=== PATIENT | male | born 1990 ===

== ENCOUNTER → 2025-03-01 13:06 | Outpatient (BNVA) | payer OTHER, SELFPAY | PROVIDERS: PCP Nurse Practitioner Family; Visit Provider Nurse Practitioner Family | DX: Z00.00 Encounter for general adult medical examination without abnormal findings (principal); I10 Essential (primary) hypertension; G47.30 Sleep apnea, unspecified; E66.9 Obesity, unspecified; H52.209 Unspecified astigmatism, unspecified eye; Z68.37 Body mass index [BMI] 37.0-37.9, adult; Z79.899 Other long term (current) drug therapy | CPT/HCPCS: 96127; 99385 ==

== ENCOUNTER 2025-04-20 11:58 | Outpatient (REF) | payer OTHER, SELFPAY ==
[2025-04-20 12:18] LABS: MANUAL DIFF FLAG NO
[2025-04-20 12:40] LABS: Hematocrit 44.1 % (42.0-52.0); Hemoglobin 15.1 g/dl (14.0-18.0); Imm Gran Abs Auto 0.04 X10*3/uL (0.00-0.03); Imm Gran Pct Auto 0.5 % (0.0-0.4); Lymphocytes Absolute Auto 1.1 X10*3/uL (1.2-4.9); Mean Corpuscular HGB Conc 34.2 g/dl (31.0-36.0); Mean Corpuscular Hemoglobin 27.2 pg (27.0-33.0); Mean Corpuscular Volume 79.5 fL (80.0-98.0); NRBC Abs Auto 0.000 X10*3/uL (0.0-0.012); NRBC Pct Auto 0.0 /100WBC (0.0-0.2); Platelet Count 229 X10*3/uL (160-400); Red Blood Count 5.55 X10*6/uL (4.60-5.80); White Blood Count 8.1 X10*3/uL (4.8-10.8)
[2025-04-20 12:44] LABS: Appearance Urine Clear; Glucose Urine UA Negative (Negative); PH 8.0 (5.0-9.0); Specific Gravity - Urine 1.015 (1.005-1.025)
[2025-04-20 13:09] LABS: Alanine Aminotransferase 29 U/L (0-40); Albumin Level 4.7 g/dL (3.5-5.0); Alkaline Phosphatase 68 U/L (39-117); Anion Gap 10 (12-20); Aspartate Amino Transferase 20 U/L (5-37); Blood Urea Nitrogen 12 mg/dL (9-16); Calcium 9.3 mg/dL (8.4-10.2); Carbon Dioxide 29 mmol/L (22-29); Chloride 107 mmol/L (96-108); Cholesterol 155 mg/dL (<200); Estimated Glomerular Filt Rate > 60; HDL Cholesterol 49 mg/dL (>40); Potassium 4.3 mmol/L (3.3-5.1); Sodium 142 mmol/L (135-145); Total Protein 7.7 g/dL (6.5-8.0); Triglycerides 66 mg/dL (<150)
[2025-04-20 13:11] LABS: Microalbum/Creatinine Ratio Ur 6.9 ug/mg cr (<30)
--- OUTSIDE RECORDS SUMMARY | 2025-04-20 13:11 | XMS_ITS ---
Author Name [facility] Organization Unknown History of Medication Use Medication Directions Dispensed Refills Start Date End Date Status brompheniramine-pseu doeph-DM (BROMFED DM) 2-30-10 mg/5 mL oral syrup Take 10 mLs by mouth 4 (four) times daily as needed for cough or congestion for up to 7 days. 4 07/06/20 24 active Cyclobenzaprine HCl - 10 MG Oral Tablet Cyclobenzaprine HCl - 10 MG Oral TabletTAKE 1 TABLET AT BEDTIME. Quantity: 1 Refills: 0Laflamme Ayesha WISE Start : [id number] Tablet Bottle 3 completed Sildenafil Citrate 100 MG Oral Tablet Sildenafil Citrate 100 MG Oral TabletTAKE ONE-HALF TABLET BY MOUTH ONE HOUR BEFORE SEX NEEDED Quantity: 6 Refills: 2Laflamme Ayesha WISE Start : [id number] 1 completed Problems Problem Status Onset Date Problem Type Date of Resolution Source Streptococcal pharyngitis active 2024-03-13 [address] [facility] Pneumonia of left lower lobe due to infectious organism active EncounterDiagnosisAct [facility] Acute cough active EncounterDiagnosisAct [facility] Immunizations Vaccine Date Source Lot Number Status Moderna COVID-19 Vaccine 100 MCG/0.5ML Intramuscular Suspension 12/13/2020 [facility] complet ed Pneumococcal polysaccharide vaccine, 23 valent 06/30/2020 [facility] completed Encounters Encounter Type Encounter Reason Primary Diagnosis Location Date Ambulatory Pneumonia, organism unspecified(486) Pneumonia, organism unspecified(486) [facility] 06/28/2024 Ambulatory [facility] 03/13/2024 Care Team Organization Name Specialty Phone Email Start Date End Da te [facility] 06/28/2024 [facility] Primary Care 03/13/2024 [facility] 03/13/2024 [facility] 04/18/2023 06/04/2024 [facility] 10/06/2022 10/06/2022
--- OUTSIDE RECORDS SUMMARY | 2025-04-20 13:11 | XMS_ITS | Clinical Summary ---
Author Organization [address] [address] Care Team Providers Care Spot Remover Name Role Phone Unavailable Primary Care Provider Unavailabl e Medications No known medications Social History Tobacco Use Types Packs/Day Years Used Date Smoking Tobacco: Never Smokeless Tobacco: Never Tobacco Cessation:Counseling Given: No Alcohol Use Standard Drinks/Week Comments Never 0 (1 standard drink = 0.6 oz pur e alcohol) Sex and Gender Information Value Date Recorded Sex Assigned at Not on file Legal Sex Male 9:59 AM EDT Gender Identity Not on file Sexual Orientation Not on file Last Filed Vital Signs Vital Sign Reading Time Taken Comments Blood Pressure 171/108 06/28/2024 11:33 AM EDT Pulse 88 06/28/2024 11:33 AM EDT Temperature 36.9 C (98.5 F) 06/28/2024 11:33 AM EDT Respiratory Rate - - Oxygen Saturation 100% 06/28/2024 11:33 AM EDT Inhaled Oxygen Concentration - - Weight - - Height - - Body Mass Index - - Plan of Treatment Health Maintenance Due Date Last Done Comments HIV screening 2005 Hepatitis C screening 2010 Tetanus adult (Td q 10,TDAP once) 2012 Covid-19 vaccine series ( - season) 2024 12/13/2020 Influenza vaccine 05/31/2025 RSV Immunization (1 - 1-dose 75+ series) 2067 Pneumococcal Vaccine (2 - 49 years) Aged Out 06/30/2020 No longer eligible b ased on patient's age to complete this topic Meningococcal Vaccine Aged Out No maria giovanny eligible based on patient's age to complete this topic Insurance [employer] [facility] [employer] Member Subscriber Plan / Payer ( fective 2023-Present) Name:Mitch Mitchell Relation to Subscriber:Self Name:Mitch Mitchell Payer ID:[id number] (NAIC) Type:Not on file Address: [place] [phone]
== END 2025-04-20 11:59 | disposition home or self-care (01) ==
LOC: HO.LAB 11:58
PROVIDERS: PCP Nurse Practitioner Family; Visit Provider Nurse Practitioner Family
DX: Z00.00 Encounter for general adult medical examination without abnormal findings (principal)
CPT/HCPCS: 36415; 80053; 80061; 81003; 82043; 82306; 82570; 84443; 85025

== ENCOUNTER 2025-05-04 11:46 | Outpatient (AMB) | payer OTHER, SELFPAY ==
--- NOTE | 2025-05-04 11:49 | MHC.PC.OV ---
Vital Signs 05/04/25 11:54 Height 6 ft Weight 271 lb BMI 36.8 BP 144/100 H Blood Pressure Location Lt brachial Position Sitting Respiration 16 Pulse 73 Pulse Source Pulse Oximeter Temp 97.2 F Temp Source Temporal Artery Scan Pulse Oximetry (%) 95 Oxygen Delivery Method Room Air Intake Visit Reasons: 2-3 wks HTN, labs review Intake Note: Mitch presents in the office today for a follow up to hypertension and his most recent lab results. Patient is not taking the amlodipine. Allergies No Known Allergies Allergy (Verified 05/04/25 12:09) Tobacco use date assessed: 05/04/25 Dental Screening Dental Screen Date: 05/04/25 Did you have a dental visit in the last 12 months?: No Did you have a dental problem in the last 6 months where you did not have access to dental care?: No Was dental information given to patient?: Patient has dentist HPI HPI Comments History of Present Illness Details 34-year-old male presents for hypertension and recent labs review follow-up. Amlodipine 2.5 mg daily was prescribed at his last visit a month ago. However, he took the medication a few times and stopped. He reports significant caffeine intake but recently decreased his caffeine intake to 400-500mg daily, from 600-700mg. He recently returned from a week vacation where he made on healthy dietary choices and drank significant amount of alcohol. He denies acute symptoms. [facility] Medical History (Updated 05/04/25 @ 12:11 by Michel Gonzalez CNP) Sleep apnea Chlamydia High blood pressure Surgical History (Updated 03/01/25 @ 13:28 by Raeann Michel MA) Hx of appendectomy Social History (Updated 05/04/25 @ 11:54 by Paula Thornton MA) Housing: Condominium Alcohol intake: current Patient Tobacco Use Status: Never used Tobacco e-Cigarette/Vaping Use: Never Used Second Hand Smoke Exposure: No service: No Current occupational status: employed Current occupation: [employer] Current occupational exposures/hazards: No Cognitive needs: No Hearing needs: No Vision needs: Yes Questionnaire Thrive Questionnaire Date Thrive assessed: 02/22/25 I am a: Patient What is your living situation today?: I have a steady place to live Within the past 12 months, did the food you bought not last and you didn't have the money to get more?: I choose not to answer this question Within the past 12 months, did you worry whether your food would run out before you got money to buy more?: I choose not to answer this question Do you have trouble paying for medicines?: No Do you have trouble getting transportation to medical appointments?: No Do you have trouble paying your heating and electricity bill?: No Do you have trouble taking care of your child, family member or friend?: No Do you have trouble with day-to-day activities such as bathing, preparing meals, shopping, managing finances, etc.?: No Are you currently unemployed and looking for a job?: No Are you interested in more education?: Yes Please select the resources that you would like help with: None Currently or been in a relationship where the following occur: No concerns reported THRIVE Score: 0 NICOLAS-7 AMB Questionnaire NICOLAS-7 Date NICOLAS - 7 assessed: 03/01/25 Source: Developed by Drs. Carlos Servin, Agustina Blackmon, Pan Hollis and colleagues, with an educational yancy from [employer]. Review of Systems Const Details: Const Denies chills, Denies fatigue, Denies fever(s), Denies headache(s) and Denies weakness ENT Denies dizziness and Denies headache(s) Card Denies chest pain, Denies lightheadedness, Denies dyspnea and Denies other (Palpitations) Resp Denies cough, Denies dyspnea, Denies wheezing and Denies other ( shortness of breath) GI Denies abdominal pain, Denies melena, Denies hematochezia, Denies change in bowel habits, Denies dyspepsia and Denies nausea Denies hematuria and Denies dysuria Musc Denies abnormal gait, Denies myalgias, Denies arthralgias, Denies numbness and Denies tingling Skin/Breast Denies rash, Denies unusual bruising and Denies wounds Neuro Denies abnormal gait, Denies dizziness, Denies headache(s), Denies memory loss, Denies numbness, Denies Sensory deficit (Neuro), Denies tingling and Denies weakness Psych Denies anxiety, Denies depression, Denies memory loss Endo Denies cold intolerance, Denies fatigue, Denies heat intolerance, Denies polydipsia and Denies polyuria Aller/Immun Denies wheezing Physical exam (Primary Care) Vital Signs: Last Vital Signs Temp 97.2 F 05/04/25 11:54 Pulse 73 05/04/25 11:54 Resp 16 05/04/25 11:54 BP 140/92 H 05/04/25 11:54 Pulse Ox 95 05/04/25 11:54 Oxygen Delivery Method Room Air 05/04/25 11:54 BMI result Body Mass Index 36.8 Tobacco/Smoking Status: Tobacco use Status Tobacco use date assessed 05/04/25 05/04/25 11:54 Patient Tobacco Use Status Never used Tobacco 05/04/25 11:54 e-Cigarette/Vaping Use Never Used 05/04/25 11:54 Thrive Assessment: Date of Thrive Assessment Date Thrive assessed 02/22/25 05/04/25 11:51 Currently or been in a relationship where the following occur: No concerns reported Const Other: General: no acute distress and well developed Nutritional Appearance: well nourished Orientation/consciousness: patient oriented x3 HENMT Head: Yes normocephalic and Yes atraumatic Eyes General: appearance normal, both eyes and all related structures Pupils: Equal, round and reactive pupils present EOM: EOMs intact bilaterally Resp Effort & Inspection: normal respiratory effort Auscultation: clear to auscultation bilaterally Cardio Rate: regular rate Rhythm: regular rhythm Heart sounds: S1 normal heart sound present, S2 normal heart sound present, no gallops, no murmurs and no rubs GI Palpation (GI): No Abdominal aortic bruit present, Soft to palpation, nontender, No hepatosplenomegaly present and No Rebound tenderness present Auscultation: normal bowel sounds General: Yes no CVA tenderness Back/Spine/Pelvis Back: no CVA tenderness Cervical Spine: cervical ROM normal and No Cervical spine tenderness Thoracic/Lumbar Spine: thoraco-lumbar ROM normal, No pain with thoraco-lumbar ROM, No thoracic spinal tenderness and No lumbar spinal tenderness Extrem General: Yes normal to inspection, No edema and No calf tenderness Skin General: warm and dry. Normal skin color. Normal skin turgor Neuro General: patient oriented x3, gait normal and no focal neuro deficit Cranial nerves: Yes Equal, round and reactive pupils present Cognition (Neuro): normal cognition Gait exam (Neuro): Normal gait present Sensory Exam: No Sensory deficit (Neuro) Psych Appearance: grossly normal Affect: normal affect Attitude: cooperative Thought process: Normal thought process present Coding Level of Care Code Est Pt Level 3 (73784) Diagnoses High blood pressure I10 Elevated fasting glucose R73.01 Assessment & Plan Assessment & Plan (1) High blood pressure: Code(s): I10 - Essential (primary) hypertension Category: Medical Plan: Resting blood pressure is 144/100, above goal of less than 140/90. He has only had a few doses of amlodipine since prescribed. Poor diet and increase alcohol and caffeine intake may contribute to elevated blood pressure. Encouraged to resume taking amlodipine as prescribed. Healthy diet and routine exercise encouraged. Limit alcohol intake to no more than 2 drinks daily or 5 weekly. Follow-up in 1 month or sooner with symptoms or concerns. Verbalized understanding and agreed with the plan. (2) Elevated fasting glucose: Code(s): R73.01 - Impaired fasting glucose Category: Medical Plan: Recent fasting glucose is elevated, 109. Healthy diet and routine exercise encouraged. Will recheck fasting glucose and make changes as needed. Verbalized understanding and agreed with the plan. Orders: Orders Glucose Fasting 1 Month R73.01 - Impaired fasting glucose
[2025-05-04 11:54] VITALS: BP 144/100; PULSE 73; RESP 16; TEMP 36.2; O2SAT 95; BMI 36.8
--- OUTSIDE RECORDS SUMMARY | 2025-05-04 12:37 | XMS_ITS | Clinical Summary ---
Author Organization [facility] Address [address] [place] [address] Care Team Providers Care Corporate Meeting Planner Name Role Phone Unknown Pcp, Non Php Primary Care Provider Unava ilable Medications Cyclobenzaprin e HCl (FLEXERIL) 10 MG tablet TAKE 1 TABLET AT BEDTIME. 1 0 3 Active Sildenafil Citrate (VIAGRA) 100 MG tablet TAKE ONE-HALF TABLET BY MOUTH APPROXIMATELY ONE HOUR BEFORE SEXUAL ACTIVITY. 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 of thoracic region 05/07/2023 Back pain, thoracic 05/02/2023 Palpitations 04/18/2023 Insufficient sleep syndrome 04/07/2021 Obstructive sleep apnea, adult 01/18/2021 Overview (11/03/2023): Transitioned From: Snoring Erectile dysfunction 01/10/2021 Upper airway resistance syndrome 12/22/2020 Decreased sex drive 12/14/2020 Elevated liver enzymes 12/14/2020 Obesity (BMI 35.0-39.9 without comorbidity) 11/2020 Encounters Date Type Department Care Team Description 03/19/2025 Refill [facility] [address] [place] [address] Noa Gu APRN BC Refill Request 03/16/2025 Refill [facility] [address] [place], [place] [id number] Noa Gu APRN BC Refill Request from Last 3 Months Immunizations Immunization Administration Dates Next Due COVID-19, mRNA (Moderna Pre Fall 2022) Monovalent, 100 mcg/0.5 ml or 50 mcg/0.25 ml dose 12/13/2020 PPV23 (Pneumovax) 06/30/2020 Family History Medical History Relation Name Comments Diabetes Father type 2 diabetes mellitus : Father Relation Name Status Comments Father Mother Social History Tobacco Use Types Packs/Day Years Used Date Smoking Tobacco: Never Assessed Comments:Smoking Status:No c urrent tobacco use Sex and Gender Information Value Date Recorded Sex Assigned at Male 07/03/2023 7:46 PM EDT Legal Sex Male 7:46 PM EDT Gender Identity Male 07/03/2023 7:46 PM EDT Sexual Orientation Not on file Last Filed Vital Signs Vital Sign Reading Time Taken Comments Blood Pressure 124/78 05/02/2023 10:50 AM EDT Pulse 77 05/02/2023 10:50 AM EDT Temperature 36.3 C (97.3 F) 05/02/2023 10:50 AM EDT Respiratory Rate 16 05/02/2023 10:50 AM EDT Oxygen Saturation 98% 01/02/2023 1:01 PM EDT Inhaled Oxygen Concentration - - Weight 124 kg (273 lb) 05/02/2023 10:50 AM EDT Height 185.4 cm (6' 1 ) 05/02/2023 10:50 AM EDT Body Mass Index 36.02 05/02/2023 10:50 AM EDT Plan of Treatment Health Maintenance Due Date Last Done Comments DTaP/Tdap/Td (1 - Tdap) 2010 Hep B (1 of 3 - 19+ 3-dose series) 2011 COVID-19 Vaccine (2 - 2023-2 5 season) 2024 12/13/2020 Influenza (#1) 2025 Zoster (Shingrix) (1 of 2) 2042 Pneumococcal Aged Out 06/30/2020 No longer eligi ble based on patient's age to complete this topic Physical Discontinued 01/02/2023, 11/30/2020 EKG Discontinued 04/14/2023 Hepatitis C Screening Completed 04/19/2023 , 11/30/2020 LDL Cholesterol Discontinued 04/19/2023, 11/30/2020 HPV Vaccine (No Doses Required) Completed Hep A Aged Out No longer eligi ble based on patient's age to complete this topic Hib Aged Out No longer eligi ble based on patient's age to complete this topic Meningococcal ACWY Aged Out No longer eligible based on patient's age to complete this topic Procedures Procedure Name Priority Date/Time Associated Diagnosis Comments HEPATITIS C ANTIBODY W/ REFLEX TO RNA, QN, RT PCR Routine 04/19/2023 10:52 AM EDT LIPID PANEL, PLASMA Routine 04/19/2023 1 0:52 AM EDT EKG 04/14/2023 12:00 AM EDT from Last 3 Months or Most Recently Relevant to Health Maintenance Results * HEPATITIS C ANTIBODY W/ REFLEX TO RNA, QN, RT PCR (04/19/2023 10:52 AM EDT) Hepatitis C virus Ab NON-REACT HEATHER NON-REACT HEATHER PHCT CONVERSIONS Comment:Antibodies to HCV we re not detected. NOTE: This does not entirely exclude the possibility of exposure to HCV since antibody production may lag infection. If there is a high suspicion of HCV infection HCV RNA testing may be of diagnostic value. 04/19/2023 10:5 2 AM EDT Narrative PHCT CONVERSIONS - 04/19/2023 9:53 PM EDT Testing Performed at: [facility], [address] [place] [address], [place] [address], , [employer]afood: Pooja New MD CL#[id number] Ayesha Corona APRN LABORATORY Final Re sult PHCT CONVERSIONS * LIPID PANEL, PLASMA (04/19/2023 10:52 AM EDT) Cholesterol 134 0 - 199 mg/dL PHCT CONVERSIONS Triglyceride 104 0 - 150 mg/dL PH[facility] CONVERSIONS VLDL Cholesterol 21 5 - 40 mg/dL [facility] CONVERSIONS HDL Cholesterol 44 40 - 80 mg/dL [facility] CONVERSIONS LDL Cholesterol 70 0 - 100 mg/dL PHCT CONVERSIONS Cholesterol Non-HDL 90 0 - 130 mg/dl PHCT CONVERSIONS CHOL/HDL Ratio 3.1 PHCT CONVERSIONS 04/19/2023 10:5 2 AM EDT Narrative PHCT CONVERSIONS - 04/19/2023 10:01 PM EDT FASTING: YES Testing Performed at: [facility], [address] [place] [address], [place] [address], , [employer]: Pooja New MD CL#[id number] us Ayesha Corona THREADING MACHINE SETTER BC LABORATORY Final Re sult PHCT CONVERSIONS * EKG (04/14/2023 12:00 AM EDT) Narrative 04/14/2023 12:00 AM EDT Ordered by an unspecified provider. us Unknown Provider CARDIOVASCULAR-NO INBASKET RTG Final Result from Last 3 Months or Most Recently Relevant to Health Maintenance Insurance PPO Care Teams Corporate Meeting Planner Relationship Specialty Start Date End Date Unknown Pcp, Non Php PCP - General 03/23/25
--- OUTSIDE RECORDS SUMMARY | 2025-05-04 12:37 | XMS_ITS | Clinical Summary ---
Author Organization [facility] Address [address] [place] [address] Care Team Providers Care Accounts Payable Technician Name Role Phone Unavailable Primary Care Provider Unavailabl e Social History Tobacco Use Types Packs/Day Years Used Date Smoking Tobacco: Never Assessed Sex and Gender Information Value Date Recorded Sex Assigned at Not on file Legal Sex Male 8:22 AM EDT Gender Identity Not on file Sexual Orientation Not on file Plan of Treatment Health Maintenance Due Date Last Done Comments Hepatitis C Virus Screening 1992 HIV Screening 2005 DTaP/Tdap/Td Vaccines (1 - Tdap) 2011 Hepatitis B Vaccines (1 of 3 - 19+ 3-dose series) 2011 COVID-19 Vaccine ( - 2023-2 5 season) 2024 HPV Vaccines Aged Out No longer eligi ble based on patient's age to complete this topic Pneumococcal Vaccine: Pediat stephon (0-5 Years) and At-Risk Patients (6 to 49 Years) Aged Out No longer eligible b ased on patient's age to complete this topic
--- OUTSIDE RECORDS SUMMARY | 2025-05-04 12:38 | XMS_ITS | Clinical Summary ---
Author Organization [address] [address] Care Team Providers Care Refrigerator Glazier Name Role Phone Unavailable Primary Care Provider [...] patient's age to complete this topic [facility] [employer] [employer] [facility] [employer] [facility] Member Subscriber Plan / Payer ( fective 2023-Present) Name:Mitch Mitchell Relation to Subscriber:Self Name:Mitch Mitchell Payer ID:[id number] (NAIC) Type:Not on file Address: [place] [phone]
== END 2025-05-04 12:26 | disposition home or self-care (01) ==
LOC: HO.HMCFM 11:47
PROVIDERS: PCP Nurse Practitioner Family; Visit Provider Nurse Practitioner Family
DX: I10 Essential (primary) hypertension (principal); R73.01 Impaired fasting glucose

== ENCOUNTER → 2025-05-04 11:46 | Outpatient (BNVA) | payer OTHER, SELFPAY | PROVIDERS: PCP Nurse Practitioner Family; Visit Provider Nurse Practitioner Family | DX: I10 Essential (primary) hypertension (principal); R73.01 Impaired fasting glucose; Z79.899 Other long term (current) drug therapy | CPT/HCPCS: 99212 ==

== ENCOUNTER 2025-06-29 13:31 | Outpatient (AMB) | payer OTHER, SELFPAY ==
--- NOTE | 2025-06-29 13:35 | MHC.PC.OV ---
Vital Signs 06/29/25 13:42 Height 6 ft Weight 280 lb BMI 38.0 BP 131/67 Blood Pressure Location Rt brachial Position Sitting Respiration 20 Pulse 70 Pulse Source Pulse Oximeter Temp 98.6 F Temp Source Oral Pulse Oximetry (%) 98 Oxygen Delivery Method Room Air Intake Visit Reasons: FMLA PW Intake Note: patient here for FMLA forms Hogshead Hooper Required: No Allergies No Known Allergies Allergy (Verified 06/29/25 14:00) Medication List - Last Reconciled 06/29/25 by Michel Gonzalez CNP amlodipine 2.5 mg PO DAILY Tobacco use date assessed: 06/29/25 Dental Screening Dental Screen Date: 06/29/25 Did you have a dental visit in the last 12 months?: Yes Did you have a dental problem in the last 6 months where you did not have access to dental care?: No Was dental information given to patient?: Patient has dentist HPI HPI Comments History of Present Illness Details 34-year-old male presents for completion of FMLA paperwork. He was evaluated at [facility] urgent care in 06/09/2025 for low back pain related to lifting heavy boxes out of his car. He was cleared to return to work on 06/12/2025. He notes that he missed work between 06/07/2025 and 06/12/2025 due to that illness. He denies acute symptoms at this time. [facility] visit note on 06/09/2025 reviewed by this provider. He admits to taking amlodipine as prescribed without adverse reactions. He notes that he has been making healthy dietary choices, including less salt and caffeine. He did not perform fasting glucose blood work as planned. 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 Current occupational exposures/hazards: No Cognitive needs: No Hearing needs: No Vision needs: Yes Questionnaire Thrive Questionnaire Date Thrive assessed: 02/22/25 I am a: Patient What is your living situation today?: I have a steady place to live Within the past 12 months, did the food you bought not last and you didn't have the money to get more?: I choose not to answer this question Within the past 12 months, did you worry whether your food would run out before you got money to buy more?: I choose not to answer this question Do you have trouble paying for medicines?: No Do you have trouble getting transportation to medical appointments?: No Do you have trouble paying your heating and electricity bill?: No Do you have trouble taking care of your child, family member or friend?: No Do you have trouble with day-to-day activities such as bathing, preparing meals, shopping, managing finances, etc.?: No Are you currently unemployed and looking for a job?: No Are you interested in more education?: Yes Please select the resources that you would like help with: None Currently or been in a relationship where the following occur: No concerns reported THRIVE Score: 0 NICOLAS-7 AMB Questionnaire NICOLAS-7 Date NICOLAS - 7 assessed: 03/01/25 Source: Developed by Drs. Carlos Servin, Agustina Blackmon, Pan Hollis and colleagues, with an educational yancy from [employer]. Review of Systems Const Details: Const Denies chills, Denies fatigue, Denies fever(s), Denies headache(s) and Denies weakness ENT Denies dizziness and Denies headache(s) Card Denies chest pain, Denies lightheadedness, Denies dyspnea and Denies other (Palpitations) Resp Denies cough, Denies dyspnea, Denies wheezing and Denies other ( shortness of breath) GI Denies abdominal pain, Denies melena, Denies hematochezia, Denies change in bowel habits, Denies dyspepsia and Denies nausea Denies hematuria and Denies dysuria Musc Denies abnormal gait, Denies myalgias, Denies arthralgias, Denies numbness and Denies tingling Skin/Breast Denies rash, Denies unusual bruising and Denies wounds Neuro Denies abnormal gait, Denies dizziness, Denies headache(s), Denies memory loss, Denies numbness, Denies Sensory deficit (Neuro), Denies tingling and Denies weakness Psych Denies anxiety, Denies depression, Denies memory loss Endo Denies cold intolerance, Denies fatigue, Denies heat intolerance, Denies polydipsia and Denies polyuria Aller/Immun Denies wheezing Physical exam (Primary Care) Vital Signs: Last Vital Signs Temp 98.6 F 06/29/25 13:42 Pulse 70 06/29/25 13:42 Resp 20 06/29/25 13:42 BP 131/67 06/29/25 13:42 Pulse Ox 98 06/29/25 13:42 Oxygen Delivery Method Room Air 06/29/25 13:42 BMI result Body Mass Index 38.0 Tobacco/Smoking Status: Tobacco use Status Tobacco use date assessed 06/29/25 06/29/25 13:46 Patient Tobacco Use Status Never used Tobacco 06/29/25 13:38 e-Cigarette/Vaping Use Never Used 06/29/25 13:38 Thrive Assessment: Date of Thrive Assessment Date Thrive assessed 02/22/25 06/29/25 13:38 Currently or been in a relationship where the following occur: No concerns reported Const Other: General: no acute distress and well developed Nutritional Appearance: well nourished Orientation/consciousness: patient oriented x3 HENMT Head: Yes normocephalic and Yes atraumatic Eyes General: appearance normal, both eyes and all related structures Pupils: Equal, round and reactive pupils present EOM: EOMs intact bilaterally Resp Effort & Inspection: normal respiratory effort Auscultation: clear to auscultation bilaterally Cardio Rate: regular rate Rhythm: regular rhythm Heart sounds: S1 normal heart sound present, S2 normal heart sound present, no gallops, no murmurs and no rubs GI Palpation (GI): No Abdominal aortic bruit present, Soft to palpation, nontender, No hepatosplenomegaly present and No Rebound tenderness present Auscultation: normal bowel sounds General: Yes no CVA tenderness Back/Spine/Pelvis Back: no CVA tenderness Cervical Spine: cervical ROM normal and No Cervical spine tenderness Thoracic/Lumbar Spine: thoraco-lumbar ROM normal, No pain with thoraco-lumbar ROM, No thoracic spinal tenderness and No lumbar spinal tenderness Extrem General: Yes normal to inspection, No edema and No calf tenderness Skin General: warm and dry. Normal skin color. Normal skin turgor Neuro General: patient oriented x3, gait normal and no focal neuro deficit Cranial nerves: Yes Equal, round and reactive pupils present Cognition (Neuro): normal cognition Gait exam (Neuro): Normal gait present Sensory Exam: No Sensory deficit (Neuro) Psych Appearance: grossly normal Affect: normal affect Attitude: cooperative Thought process: Normal thought process present Coding Level of Care Code Est Pt Level 3 (21144) Diagnoses High blood pressure I10 Assessment & Plan Assessment & Plan (1) High blood pressure: Code(s): I10 - Essential (primary) hypertension Category: Medical Plan: Blood pressure is 131/67, within goal of less than 130/80. Continue current treatment regimen. Low-sodium diet encouraged. Follow-up in 3 months or sooner with symptoms or concerns. Verbalized understanding and agreed with the plan. DOMINIC paperwork completed for his employer for recent low back pain. Medications: New amlodipine 2.5 mg PO DAILY 90 tabs 1RF 90 days
[2025-06-29 13:42] VITALS: BP 131/67; PULSE 70; RESP 20; TEMP 37; O2SAT 98; BMI 38.0
--- OUTSIDE RECORDS SUMMARY | 2025-06-29 14:48 | XMS_ITS | Encounter Summary ---
Author Organization [facility] Address [address] [place] [address] Care Team Providers Care Keyboard Teacher Name Role Phone Noa Gu APRN Unavailable [phone] Noa Gu [facility] Primary Care Provider Unknown Pcp, Non Php Primary Care Provider Unava ilable Reason for Visit * Reason Onset Date Comments Refill Request 03/16/2025 Encounter Details Date Type Department Care Team (Late st Contact Info) Description 03/16/2025 Refill [facility] [address] [place] [address] Noa Gu, CHARTER AND TOUR BUS DRIVER [address] [address] Refill Request Social History Tobacco Use Types Packs/Day Years Used Date Smoking Tobacco: Never Assessed Comments:Smoking Status:No c urrent tobacco use Sex and Gender Information Value Date Recorded Sex Assigned at Male 07/03/2023 7:46 PM EDT Legal Sex Male 7:46 PM EDT Gender Identity Male 07/03/2023 7:46 PM EDT Sexual Orientation Not on file documented as of this encounter Miscellaneous Notes * Telephone Encounter - Leonila Johnson - 03/16/2025 1:11 PM EDT Fax from pharmacy for: refill [facility] [phone] [facility] [address] [facility] [id number] Has the patient contacted the pharmacy for this prescription? yes documented in this encounter Plan of Treatment Not on file documented as of this encounter Visit Diagnoses Not on filedocumented in this encounter Care Teams Keyboard Teacher Relationship Specialty Start Date End Date Noa Gu APRN [address] [place] [address] PCP - Backup PCP Family Medicine 09/25/24 03/22/25 Noa Gu APRN [address] [place] [address] PCP - General Family Medicine 09/25/24 03/22/25 Unknown Pcp, Non Php PCP - General 03/23/25 documented as of this encounter
--- OUTSIDE RECORDS SUMMARY | 2025-06-29 14:48 | XMS_ITS | Clinical Summary ---
Author Organization [address] [address] Care Team Providers Care Shoes Salesperson Name Role Phone Unavailable Primary Care Provider [...] Tetanus adult (Td q 10,TDAP once) 2012 Influenza vaccine 04/30/2025 Covid-19 vaccine series ( - 2024- season) 2025 12/13/2020 RSV Immunization (1 - 1-dose 75+ series) 2067 Pneumococcal Vaccine (2 - 49 years) Aged Out 06/30/2020 No longer eligible b ased on patient's age to complete this topic Meningococcal B Vaccine Aged Out No l onger eligible based on patient's age to complete this topic Meningococcal Vaccine Aged Out No maria giovanny eligible based on patient's age to complete this topic Insurance [employer] [facility] [employer] [facility] [employer] [facility]
--- OUTSIDE RECORDS SUMMARY | 2025-06-29 14:48 | XMS_ITS | Encounter Summary ---
Author Organization [facility] Address [address] [place] [address] Care Team Providers Care Cadmium Plater Name Role Phone Noa Gu APRN Unavailable [phone] Noa Gu [facility] Primary Care Provider Unknown Pcp, Non Php Primary Care Provider Unava ilable Reason for Visit * Reason Onset Date Comments Refill Request 03/19/2025 Encounter Details Date Type Department Care Team (Late st Contact Info) Description 03/19/2025 Refill [facility] [address] [place] [address] Noa Gu, PRIVATE INVESTIGATOR [address] [address] Refill Request Social History Tobacco Use Types [...] encounter Miscellaneous Notes * Telephone Encounter - Tonie Jones - 03/19/2025 1:49 PM EDT Fax from pharmacy for: Sildenafil [facility] [phone] [facility] [address] [facility] [id number] Has the patient contacted the pharmacy for this prescription? yes documented in this encounter Plan of Treatment Not on file documented as of this encounter Visit Diagnoses Not on filedocumented in this encounter Care Teams Cadmium Plater Relationship Specialty Start Date End Date Noa Gu APRN [address] [place] [address] PCP - Backup PCP Family Medicine 09/25/24 03/22/25 Noa Gu APRN [address] [place] [address] PCP - General Family Medicine 09/25/24 03/22/25 Unknown Pcp, Non Php PCP - General 03/23/25 documented as of this encounter
--- OUTSIDE RECORDS SUMMARY | 2025-06-29 14:48 | XMS_ITS | Clinical Summary ---
Author Organization [facility] Address [address] [place] [address] Care Team Providers Care Railcar Carpenter Name Role Phone Unknown Pcp, Non Php [...] 12/14/2020 Obesity (BMI 35.0-39.9 without comorbidity) 11/2020 Immunizations Immunization Administration Dates Next Due COVID-19, [...] 3-dose series) 2011 COVID-19 Vaccine (2 - 2024-2 6 season) 2025 12/13/2020 Influenza (#1) 2025 Zoster (Shingrix) (1 [...] 04/19/2023 9:53 PM EDT Testing Performed at: [facility], [address] [place] [id number], , Entry Level Manager: Pooja New MD CL#[id number] Ayesha Corona [facility] Final Re sult PHCT CONVERSIONS * [...] PM EDT FASTING: YES Testing Performed at: [facility], [address] [place] [id number], , Entry Level Manager: Pooja New MD CL#[id number] us Ayesha Corona [facility] Final Re sult PHCT CONVERSIONS * EKG (04/14/2023 12:00 AM EDT) Narrative 04/14/2023 12:00 AM EDT Ordered by an unspecified provider. us Unknown Provider CARDIOVASCULAR-NO INBASKET RTG Final Result from Last 3 Months or Most Recently Relevant to Health Maintenance Insurance PPO Care Teams Railcar Carpenter Relationship Specialty Start Date End Date Unknown Pcp, Non Php PCP - General 03/23/25
--- OUTSIDE RECORDS SUMMARY | 2025-06-29 14:48 | XMS_ITS | Clinical Summary ---
Author Organization [facility] Address [address] [place] [address] Care Team Providers Care Credit Risk Modeler Name Role Phone Unavailable Primary Care Provider [...] COVID-19 Vaccine ( - 2023-2 5 season) 2025 HPV Vaccines (No Doses Required) Completed Pneumococcal Vaccine: Pediat stephon (0-5 Years) and At-Risk Patients (6 to 49 Years) Aged Out No longer eligible b ased on patient's age to complete this topic
== END 2025-06-29 14:09 | disposition home or self-care (01) ==
LOC: HO.HMCFM 13:32
PROVIDERS: PCP Nurse Practitioner Family; Visit Provider Nurse Practitioner Family
DX: I10 Essential (primary) hypertension (principal)

== ENCOUNTER → 2025-06-29 13:31 | Outpatient (BNVA) | payer OTHER, SELFPAY | PROVIDERS: PCP Nurse Practitioner Family; Visit Provider Nurse Practitioner Family | DX: I10 Essential (primary) hypertension (principal); M54.50 Low back pain, unspecified; Z79.899 Other long term (current) drug therapy | CPT/HCPCS: 99212 ==

== ENCOUNTER 2025-07-06 10:32 | Outpatient (AMB) | payer OTHER, SELFPAY ==
[2025-07-06 10:37] VITALS: BP 130/86; PULSE 91; O2SAT 95; BMI 37.4
--- NOTE | 2025-07-06 10:37 | A.OFFVIS_ITS ---
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 He reports difficulty falling asleep or maintaining sleep. He has history of sleep apnea, ran out of CPAP supplies(J&L) since October, and has not had a refill due to new health plan. Patient has lost a lot of weight. Goes to bed at 12am wakes up 5:30am. Accompanied by: Self / Same As Patient Allergies No Known Allergies Allergy (Verified 07/06/25 10:41) HPI Comments Details: 34 year old male presents for an evaluation of sleep apnea, he is referred to us by his PCP. Jun 2017 PMH of seizure activity at work, he says he passed out and hit his head on the bench, his entire body shook, denies biting teeth, denies eyes rolling into back of his head, denies urinary incontinences, this lasted for over a minute, witnessed by co-workers they called EMT he was taken to [facility] and complete work up was normal, MRI, CTscan with labs. He was started on Depakote and did not tolerate the medication, then started keppra. pt decided not to take this medication due to hallucinations as it kept him up all day and night. His EEG was normal. He was diagnosed with MARIMAR over 5 years ago when he was 340lbs and now is 276lbs. He has difficulties sleeping multiple arousals if he does not use his cpap. He started to feel better, his memory, mood and brain fog improved with consistent use. He goes to bed at midnight and wakes up at 5am for work, usually will have 1-2 bathroom breaks. He snores loudly has been told he stops breathing and gasps for air. He denies bruxism and he denies clenching his jaws. He has chronic back pain. He sleeps on his left side and notices he still has arousals. He wakes up with morning headaches, 1-2x a week lasting 30min, which improve after drinking water and having a meal. He denies vision changes. He denies RLS symptoms. He denies smoking and alcohol use. 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 Current occupational exposures/hazards: No Cognitive needs: No Hearing needs: No Vision needs: Yes Physical Exam Vital Signs: Last Vital Signs Pulse 91 07/06/25 10:37 BP 130/86 07/06/25 10:37 Pulse Ox 95 07/06/25 10:37 Oxygen Delivery Method Room Air 07/06/25 10:37 BMI result Body Mass Index 37.4 Const General: cooperative and comfortable Nutritional Appearance: overweight Orientation/consciousness: patient oriented x3 HEENT Face and sinus: Yes face symmetric Eyes Pupils: Equal, round and reactive pupils present Neck Neck: Yes full ROM Resp Effort & Inspection: normal respiratory effort and able to speak in complete sentences Neuro General: patient oriented x3 and moves all extremities Cranial nerves: Yes Equal, round and reactive pupils present, Yes Normal facial strength present, Yes Midline tongue present, Yes Ability to bilaterally rotate head present and Yes Ability to bilaterally elevate shoulders present Cognition (Neuro): normal cognition Gait exam (Neuro): Normal gait present Motor exam (neuro): 5/5 motor strength present throughout and Normal motor muscle tone present throughout Psych Appearance: grossly normal Speech and movement: Normal speech and movement present Attitude: cooperative Results Reviewed Results Reviewed: labs reviewed with pt today Assessment & Plan Assessment & Plan (1) Excessive daytime sleepiness: Code(s): G47.19 - Other hypersomnia Category: Medical (2) Fatigue: Code(s): R53.83 - Other fatigue Category: Medical Qualifiers: Fatigue type: chronic, unspecified Qualified Code(s): R53.82 - Chronic fatigue, unspecified (3) Snoring: Code(s): R06.83 - Snoring Category: Medical Plan HST to evaluate marimar RLS will monitor for symptoms Labs to r/o deficiencies Orders: Orders Homocysteine Today G47.9 - Sleep disorder, unspecified, R53.83 - Other fatigue IRON PROFILE Today G47.9 - Sleep disorder, unspecified, R53.83 - Other fatigue RT home sleep study Today G47.19 - Other hypersomnia Ferritin Today R53.83 - Other fatigue Methylmalonic Acid Today G47.9 - Sleep disorder, unspecified, R53.83 - Other fatigue Vitamin B12 and Folate Today R53.83 - Other fatigue Patient Instructions: Sleep Hygiene provided: set a scheduled bedtime and wake time to help regulate the circadian rhythm and balance the release of pituitary hormones. Sleep in a dark room, temperatures below 68 degrees, and no devices n bed. Limit caffeinated products 6 hours prior to bed, and limit fluids 2-4 hours prior to bed. Gentle night yoga, diffusing essential oils, and playing soft music can be relaxing. Coding Level of Care Code New Pt Level 4 (73968) Diagnoses Excessive daytime sleepiness G47.19 Chronic fatigue R53.82 Fatigue type: chronic, unspecified Snoring R06.83 Sleep Questionnaire Difficulty falling asleep: No Difficulty staying asleep?: Yes Number of arousals: 2 Snoring: Yes Witnessed apneas: No Gasping arousals: Yes Nocturia: No GERD: Yes Vivid dreams: No Acting out dreams: No Abnormal behavior in sleep: No Abnormal movements in sleep: No Morning headaches: Yes Excessive daytime sleepiness: Yes Daytime naps: Yes Restless legs: No Hallucinations: No Sleep paralysis: Yes Drop attacks: No Sleep Study: Yes CPAP: Yes
--- OUTSIDE RECORDS SUMMARY | 2025-07-06 12:49 | XMS_ITS | Encounter Summary ---
Author Organization [facility] Address [address] [place] [address] Care Team Providers Care Technologist Development Name Role Phone Noa Gu APRN Unavailable [phone] Noa Gu [facility] Primary Care Provider Unknown Pcp, Non Php Primary Care Provider Unava ilable Reason for Visit * Reason Onset Date Comments Refill Request 03/19/2025 Encounter Details Date Type Department Care Team (Late st Contact Info) Description 03/19/2025 Refill [facility] [address] [place] [address] Noa Gu, CONSTRUCTION SECRETARY [address], [place] [address] Refill Request Social History Tobacco Use Types [...] from pharmacy for: Sildenafil Patient[facility] [place] [facility] [phone] [facility] [address] [facility] [address] Has the patient contacted the pharmacy for this prescription? yes documented in this encounter Plan of Treatment Not on file documented as of this encounter Visit Diagnoses Not on filedocumented in this encounter Care Teams Technologist Development Relationship Specialty Start Date End Date Noa Gu APRN [address] [place] [address] PCP - Backup PCP Family Medicine 09/25/24 03/22/25 Noa Gu APRN [address] [place] [address] PCP - General Family Medicine 09/25/24 03/22/25 Unknown Pcp, Non Php PCP - General 03/23/25 documented as of this encounter
--- OUTSIDE RECORDS SUMMARY | 2025-07-06 12:49 | XMS_ITS | Clinical Summary ---
Author Organization [address] [address] Care Team Providers Care Finance Teacher Name Role Phone Unavailable Primary Care Provider [...] patient's age to complete this topic Insurance [employer] [facility] [employer] [facility] [employer] [facility]
--- OUTSIDE RECORDS SUMMARY | 2025-07-06 12:49 | XMS_ITS | Clinical Summary ---
Author Organization [facility] Address [address] [place] [address] Care Team Providers Care Blueprint Tracer Name Role Phone Unavailable Primary Care Provider [...]
--- OUTSIDE RECORDS SUMMARY | 2025-07-06 12:49 | XMS_ITS | Clinical Summary ---
Author Organization [facility] Address [address] [place] [address] Care Team Providers Care Fur Examiner Name Role Phone Unknown Pcp, Non Php [...] 04/19/2023 9:53 PM EDT Testing Performed at: [facility], [address] [place] [id number], , Relay Associate: Pooja New MD CL#[id number] Ayesha Corona [facility] Final Re sult PHCT CONVERSIONS * [...] PM EDT FASTING: YES Testing Performed at: [facility], [address] [place] [id number], , Relay Associate: Pooja New MD CL#[id number] us Ayesha Corona [facility] Final Re sult PHCT CONVERSIONS * EKG (04/14/2023 12:00 AM EDT) Narrative 04/14/2023 12:00 AM EDT Ordered by an unspecified provider. us Unknown Provider CARDIOVASCULAR-NO INBASKET RTG Final Result from Last 3 Months or Most Recently Relevant to Health Maintenance Insurance PPO Care Teams Fur Examiner Relationship Specialty Start Date End Date Unknown Pcp, Non Php PCP - General 03/23/25
--- OUTSIDE RECORDS SUMMARY | 2025-07-06 12:49 | XMS_ITS | Encounter Summary ---
Author Organization [facility] Address [address] [place] [address] Care Team Providers Care Gum Scoring Machine Operator Name Role Phone Noa Gu APRN Unavailable [phone] Noa Gu [facility] Primary Care Provider Unknown Pcp, Non Php Primary Care Provider Unava ilable Reason for Visit * Reason Onset Date Comments Refill Request 03/16/2025 Encounter Details Date Type Department Care Team (Late st Contact Info) Description 03/16/2025 Refill [facility] [address] [place] [address] Noa Gu, NETWORK SECURITY ARCHITECT [address], [place] [address] Refill Request Social History Tobacco Use Types [...] from pharmacy for: refill Patient's Preferred Pharmacy: [facility] [phone] [facility] [address] [facility] [id number] Has the patient contacted the pharmacy for this prescription? yes documented in this encounter Plan of Treatment Not on file documented as of this encounter Visit Diagnoses Not on filedocumented in this encounter Care Teams Gum Scoring Machine Operator Relationship Specialty Start Date End Date Noa Gu APRN [address] [place] [address] PCP - Backup PCP Family Medicine 09/25/24 03/22/25 Noa Gu APRN [address] [place] [address] PCP - General Family Medicine 09/25/24 03/22/25 Unknown Pcp, Non Php PCP - General 03/23/25 documented as of this encounter
== END 2025-07-06 11:27 | disposition home or self-care (01) ==
LOC: HO.HSMS 10:32
PROVIDERS: PCP Nurse Practitioner Family; Visit Provider Physician Assistant Medical
DX: G47.19 Other hypersomnia (principal); R53.82 Chronic fatigue, unspecified; R06.83 Snoring
CPT/HCPCS: 99204

== ENCOUNTER → 2025-07-06 10:32 | Outpatient (BNVA) | payer OTHER, SELFPAY | PROVIDERS: PCP Nurse Practitioner Family; Visit Provider Physician Assistant Medical | DX: G47.19 Other hypersomnia (principal); R06.83 Snoring; R53.82 Chronic fatigue, unspecified; M54.9 Dorsalgia, unspecified | CPT/HCPCS: 99202 ==